=== PATIENT | female | born 1970 | race Caucasian/White ===

== ENCOUNTER 2020-06-07 17:57 | Emergency (ER) | payer OTHER, SELFPAY ==
--- NOTE | ~2020-06-07 | CT_ITS ---
EXAMINATION: CT abdomen pelvis wo con DATE: 06/07/2020 19:00 INDICATION: Bilateral flank pain. Hematuria. TECHNIQUE: Computed tomography (CT) of the abdomen and pelvis was performed without intravenous contr ast. Automated exposure control and iterative reconstruction technique were employed. The dose-length product was 207.97 mGy-cm. COMPARISON: CT abdomen and pelvis 03/30/2015 FINDINGS: The visualized portions of the lung bases demonstrate minimal atelectasis. No pleural effus ion. The heart size is normal. No pericardial effusion. The liver, spleen, gallbladder, pancreas, and adrenal glands are normal. There is a 4 mm stone in right kidney. There is a 9 mm stone in right scotty al pelvis. There is a 3 mm stone in left kidney. No hydronephrosis. There is a diverticulum of the si gmoid colon without evidence of diverticulitis. The appendix is normal. There are no dilated loops of bowel. There are no pathologically enlarged lymph nodes. There is no free intraperitoneal fluid. The re is mild thoracolumbar spondylosis. IMPRESSION: 1. Bilateral nonobstructing kidney stones. Reviewed, dictated and finalized at location A. OVISUAL PRODUCTION SPECIALIST
--- NOTE | ~2020-06-07 | XR_ITS ---
EXAMINATION: XR abdomen/kub 1V DATE: 06/07/2020 19:07 INDICATION: Hematuria. Back pain. TECHNIQUE: A supine view of the abdomen on 2 radiographs was obtained. COMPARISON: CT abdomen and pelvis 06/07/2020 FINDINGS: There are no dilated loops of bowel. There is a phlebolith in left pelvis. There is a 9 mm stone in right renal pelvis. There is a 3 mm stone in left kidney. IMPRESSION: 1. Bilateral kidney stones. Reviewed, dictated and finalized at location A. CLEANER IMPRESSION: 1. Bilateral kidney stones.
[2020-06-07 17:59] VITALS: BP 153/95; PULSE 109; RESP 18; TEMP 36.4; O2SAT 100
--- NOTE | 2020-06-07 18:25 | PC.NURSE ---
patient brought back to ED room H3 with c/o lower back pain. see notes. patient has hx of previous episodes of kidney stones. pain has been intermittent over the last few weeks. denies known fever. denies N/V/D. alert. oriented. missed scheduled KUB last May with her machine set up. assessments documented. SL inserted. labs drawn. urine specimen collected. bedside urine preg done.
--- NOTE | 2020-06-07 18:36 | PC.NURSE ---
provider in room.
[2020-06-07 18:45] LABS: Add Urine Microscopic? YES; Appearance Urine Cloudy (Clear); Bacteria Urine 2+ /hpf; Bilirubin Urine Negative (Negative); Blood Urine 3+ (Negative); Color Urine Red (Yellow); Glucose Urine UA Negative (Negative); Ketones Urine Negative (Negative); Leukocyte Esterase Ur Negative LEU/UL (Negative); Mucus Urine Rare /lpf; Nitrate Urine Negative (Negative); Protein Urine 2+ mg/dL (Negative); RBC Urine >75 /hpf (0-2); Squamous Epithelial Cell Urine Many /hpf (Few); Urobilinogen Urine Negative mg/dL (<2.0); WBC Urine 21-30 /hpf
[2020-06-07] MEDS: SODIUM CHLORIDE 0.9% IV 1,000 ML 999 ML IV CONT (18:49)
[2020-06-07] MEDS: ONDANSETRON INJ 4 MG/2 ML VIAL IV PUSH (18:49)
[2020-06-07 18:50] LABS: Basophils Absolute Auto 0.1 K/mm3 (0.0-0.1); Basophils Percent Auto 0.6 % (0.2-1.2); Eosinophils Absolute Auto 0.1 K/mm3 (0-0.3); Eosinophils Percent Auto 1.1 % (0-4.4); Hematocrit 42.1 % (37.0-47.0); Hemoglobin 14.6 g/dL (12.0-15.0); Immature Granulocyte Absolute 0.03 K/mm3 (0.00-0.031); Immature Granulocyte Percent A 0.3 % (0-0.5); Lymphocytes Absolute Auto 2.08 K/mm3 (0.9-3.2); Lymphocytes Percent Auto 19.2 % (18.3-44.2); Mean Corpuscular HGB Conc 34.7 g/dl (32-36); Mean Corpuscular Hemoglobin 28.9 pg (26-34); Mean Corpuscular Volume 83.2 fl (80-100); Mean Platelet Volume 10.7 fl (7.4-10.4); Monocytes Absolute Auto 0.5 K/mm3 (0.1-0.6); Monocytes Percent Auto 4.4 % (2.6-8.5); Neutrophils Absolute Auto 8.1 K/mm3 (1.3-6.7); Neutrophils Percent Auto 74.4 % (45.5-73.1); Platelet Count Result 352 k/mm3 (150-375); Red Blood Count 5.06 M/mm3 (4.2-5.4); Red Cell Distribution Width 12.2 % (11.5-14.5); White Blood Count 10.8 K/mm3 (4.5-10.0)
[2020-06-07 19:02] LABS: Anion Gap 11 mmol/L (8-16); Blood Urea Nitrogen 19 mg/dL (7-17); Calcium 9.2 mg/dL (8.4-10.2); Carbon Dioxide 28 mmol/L (22-30); Chloride 101 mmol/L (98-107); Estimated CRCL calculation 69 ml/min; Estimated Glomerular Filt Rate > 60; Glucose 131 mg/dL (65-105); Potassium 3.9 mmol/L (3.4-5.0); Sodium 140 mmol/L (137-145)
--- NOTE | 2020-06-07 20:04 | ED.ABDPAIN ---
HPI - Abdominal Pain General Chief Complaint: Abdominal Pain Stated Complaint: kidney stone, lower back pain Time Seen by Provider: 06/07/20 18:09 Source: patient, family and old records reviewed Mode of arrival: ambulatory Limitations: no limitations History of Present Illness HPI narrative: Patient is a 49-year-old female who presents to emergency department for evaluation of left-sided back pain and blood in the urine for the last 3 days presents with concern for possible kidney stone followed by urology at [facility]. Patient denies fever chills URI symptoms or vomiting. Patient does note some nausea. Patient has taken dbvv-[id number]-ykvomru medications with some improvement. Patient presents in no distress does not appear Related Data Home Medications Medication Instructions Recorded Confirmed alprazolam 0.25 mg tablet 0.25 mg PO TID PRN 04/18/19 12/25/19 ascorbic acid (vitamin C) 250 mg 250 mg PO DAILY 04/18/19 12/25/19 tablet carvedilol 3.125 mg tablet 3.125 mg PO Q12H 04/18/19 12/25/19 multivitamin,qw-yzli-xpyctzbb 1 tablet PO DAILY 04/18/19 12/25/19 cetirizine 10 mg tablet 10 mg PO DAILY PRN 12/25/19 12/25/19 Allergies Allergy/AdvReac Type Severity Reaction Status Date / Time Penicillins Allergy Unknown Verified 09/20/18 16:10 Review of Systems Review of Systems: All systems reviewed & are unremarkable except as noted in HPI and below PMFSH Past Medical History Medical History (Updated 06/07/20 @ 20:09 by Rg Flores PA-C) Chronic depression Essential (primary) hypertension Exposure to COVID-19 virus Generalized anxiety disorder with panic attacks Urolithiasis Family History Family History (Updated 09/20/18 @ 16:15 by DOCTOR UNKNOWN) Grandparent Diabetes mellitus Hypertension, Onset Age: 92 Family history of malignant neoplasm, Onset Age: 50 Mother Family history of hypercholesterolemia Hypertension Patient's mother is in good health Father Hypertension Patient's father is in good health Social History Social History Smoking status: Never smoker Alcohol intake: never Exam Narrative: Exam Narrative: GENERAL: Well-appearing, well-nourished, and in no acute distress. HEAD: Normocephalic, atraumatic. EYES: PERRLA and EOMI. ENT: Nares clear, no rhinorrhea or epistaxis. Mucous membranes moist. CHEST: Clear to auscultation. No respiratory distress. No wheezes rales or rhonchi HEART: Regular rate and rhythm. No murmur heard. Normal peripheral pulses. ABDOMEN: Soft, nontender, nondistended SKIN: Warm, dry, no rash. NEURO: No focal deficits. Alert and oriented x3. PSYCH: Normal mood and affect. Course Course Emergency Course: Patient evaluated emergency department will be treated for urinary tract infection given fluids and antibiotics in the emergency department afebrile appearing no distress ABCs and vital signs intact and stable will follow with urology given reasons to return felt appropriate for outpatient reevaluation Vital Signs Vital signs: Vital Signs Temperature 97.6 F 06/07/20 17:59 Pulse Rate 109 H 06/07/20 17:59 Respiratory Rate 18 06/07/20 17:59 Blood Pressure 153/95 H 06/07/20 17:59 Pulse Oximetry 100 06/07/20 17:59 Temperature 97.6 F 06/07/20 17:59 Pulse Rate 109 H 06/07/20 17:59 Respiratory Rate 18 06/07/20 17:59 Blood Pressure 153/95 H 06/07/20 17:59 Pulse Oximetry 100 06/07/20 17:59 MDM - Abdominal Pain MDM Narrative Medical decision making narrative: Patient treated in the emergency department felt appropriate for outpatient reevaluation afebrile nontoxic-appearing no distress Differential Diagnosis Differential diagnosis: Likely abdominal pain Lab Data Result diagrams: 06/07/20 18:45 06/07/20 18:45 Labs: Lab Results 06/07/20 06/07/20 06/07/20 Range/Units 18:32 18:45 18:45 WBC 10.8 H (4.5-10.0) K/mm3 R
== END 2020-06-07 20:22 | disposition home or self-care (01) ==
PROVIDERS: Emergency Medicine; Emergency Medicine Emergency Medical Services; Emergency Provider Emergency Medicine; PCP Family Medicine
DX: N39.0 Urinary tract infection, site not specified (principal); F32.9 Major depressive disorder, single episode, unspecified; I10 Essential (primary) hypertension; F41.1 Generalized anxiety disorder; N20.0 Calculus of kidney
CPT/HCPCS: 36415; 74018; 74176; 80048; 81001; 81025; 85025; 87086; 87088; 96361; 96365; 96375; 99284; J0696; J2405; J7030

== ENCOUNTER 2020-06-16 14:26 | Outpatient (CLI) | payer OTHER, SELFPAY ==
[2020-06-16 14:52] LABS: Prothrombin Time 13.3 Seconds (11.1-14.7)
[2020-06-16 14:53] LABS: Partial Thromboplastin Time 27.7 SECONDS (22.3-36.8)
== END 2020-06-16 14:27 | disposition home or self-care (01) ==
PROVIDERS: PCP Family Medicine; Visit Provider Urology
DX: N20.1 Calculus of ureter (principal); Z01.818 Encounter for other preprocedural examination
CPT/HCPCS: 36415; 85610; 85730

== ENCOUNTER 2020-06-17 01:42 | Outpatient (CLI) | payer OTHER, SELFPAY ==
[2020-06-17 18:38] LABS: SARS-CoV-2 RNA PCR Negative
== END 2020-06-17 01:43 | disposition home or self-care (01) ==
LOC: ANHCOVIDDT 01:43
PROVIDERS: PCP Family Medicine; Visit Provider Urology
DX: Z01.812 Encounter for preprocedural laboratory examination (principal); Z20.822 Contact with and (suspected) exposure to COVID-19
CPT/HCPCS: C9803; U0003; U0005

== ENCOUNTER 2020-06-17 22:20 | Emergency (ER) | payer OTHER, SELFPAY ==
--- NOTE | ~2020-06-17 | CT_ITS ---
EXAMINATION: CT abdomen pelvis wo con EXAM DATE: 06/18/2020 01:17 INDICATION: Kidney stone. TECHNIQUE: Spiral CT of the abdomen and pelvis was performed without contrast. Axial, coronal and sag ittal images were reviewed. The dose-length product (DLP) for this examination was 541.47 mGy-cm. T he exposure was tailored according to patient size (auto mA exposure control), and iterative reconstr uction (ASIR) was used as additional dose reduction technique. Comparison is made to prior examinatio n from 06/07/2020. FINDINGS: Again there is a nonobstructing 9 mm stone in the right renal . Several additional punctate left calyceal stones. No caliectasis. The uterus is unremarkable. The bladder is unremarkable. T he liver, spleen, adrenal glands and pancreas are unremarkable. Gallbladder is unremarkable. No silvano iary obstruction. There is no retroperitoneal or pelvic lymphadenopathy. Small umbilical fat-conta ining hernia. The appendix is normal. The stomach and small bowel are unremarkable. There is expected amount of c olonic stool. No free intraperitoneal gas. The heart is normal in size. There are no pericardial or pleural effusions. The lung bases are unremarkable. The bones are unremarkable. IMPRESSION: 1. Right renal pelvis nonobstructing 9 mm stone unchanged. Punctate left nephrolithiasis. Reviewed, dictated and finalized at location A. E MAKER IMPRESSION: 1. Right renal pelvis nonobstructing 9 mm stone unchanged. Punctate left nephr olithiasis.
[2020-06-17 22:29] VITALS: BP 151/58; PULSE 103; RESP 18; TEMP 36.5; O2SAT 100
--- NOTE | 2020-06-17 23:32 | ED.FEMALEGU ---
HPI - Female Genitourinary General Chief complaint: Urogenital-Female Stated complaint: abd pain, known kidney stone, fever Time Seen by Provider: 06/17/20 23:22 Source: patient Mode of arrival: ambulatory Limitations: no limitations History of Present Illness HPI Narrative: Patient is a 49-year-old female who presents complaining of lower abdominal pain, nausea, and fever starting this p.m. patient has a history of kidney stones and is scheduled for lithotripsy on Tuesday. Patient was also treated with IV and p.o. antibiotics for UTI diagnosed 06/07/2020. Patient reports that she just does not feel right . She denies all other complaints at this time. MD elicited complaint: UTI Related Data Home Medications Medication Instructions Recorded Confirmed alprazolam 0.25 mg tablet 0.25 mg PO TID PRN 04/18/19 06/12/20 ascorbic acid (vitamin C) 250 mg 250 mg PO DAILY 04/18/19 06/12/20 tablet carvedilol 3.125 mg tablet 3.125 mg PO Q12H 04/18/19 06/12/20 multivitamin,cx-wfke-fsqglujr 1 tablet PO DAILY 04/18/19 06/12/20 cetirizine 10 mg tablet 10 mg PO DAILY PRN 12/25/19 06/12/20 cholecalciferol (vitamin D3) 50 mcg PO DAILY 06/12/20 06/12/20 [Vitamin D3] Allergies Allergy/AdvReac Type Severity Reaction Status Date / Time Penicillins Allergy Unknown Rash Verified 06/17/20 22:34 Review of Systems Review of Systems: Narrative: CONSTITUTIONAL: Reports fever, denies chills, or sweats. EYES: Denies visual changes, redness, or discharge. ENT: Denies rhinorrhea, congestion, sore throat, or otalgia. CARDIOVASCULAR: Denies chest pain, palpitations, or edema. RESPIRATORY: Denies cough or dyspnea. GASTROINTESTINAL: Reports nausea, vomiting, or diarrhea. GENITOURINARY: Denies dysuria or hematuria, reports lower abdominal pain. SKIN: Denies rash or itching. MUSCULOSKELETAL: Denies back pain, joint pain, or myalgia. NEUROLOGIC: Denies headache, numbness, dizziness, or weakness. PSYCHIATRIC: Denies anxiety or depression. [facility] Past Medical History Medical History Chronic depression Essential (primary) hypertension Exposure to COVID-19 virus Generalized anxiety disorder with panic attacks Urolithiasis Family History Family History Grandparent Diabetes mellitus Hypertension, Onset Age: 92 Family history of malignant neoplasm, Onset Age: 50 Mother Family history of hypercholesterolemia Hypertension Patient's mother is in good health Father Hypertension Patient's father is in good health Social History Social History Smoking status: Never smoker Alcohol intake: never Substance use: never Gender identity (if verbalized by the patient): Female Spiritual care concerns: No Exam Narrative: Exam Narrative: GENERAL: Well-appearing, well-nourished, and in no acute distress. HEAD: Normocephalic, atraumatic. EYES: No redness or drainage. ENT: Mucous membranes pink and moist. CHEST: No respiratory distress. HEART: Regular rate and rhythm. EXTREMITIES: Normal range of motion. SKIN: Warm, dry, no rash. NEURO: No focal deficits. Alert and oriented x3. Gait steady. PSYCH: Normal affect. No signs of depression or anxiety. Course Vital Signs Vital signs: Vital Signs Temperature 36.5 C 06/17/20 22:29 Pulse Rate 103 H 06/17/20 22:29 Respiratory Rate 18 06/17/20 22:29 Blood Pressure 151/58 H 06/17/20 22:29 Pulse Oximetry 100 06/17/20 22:29 Temperature 37.2 C 06/18/20 02:11 Pulse Rate 88 06/18/20 02:11 Respiratory Rate 16 06/18/20 02:11 Blood Pressure 113/76 06/18/20 02:11 Pulse Oximetry 98 06/18/20 02:11 MDM - Female Genitourinary MDM Narrative Medical decision making narrative: Patient CT shows no changes or obstructing stones. Patient denies pain at this time. Spoke with Dr. Bahena who agre
[2020-06-18] MEDS: SODIUM CHLORIDE 0.9% IV 1,000 ML 999 ML IV CONT (00:01)
[2020-06-18] MEDS: ONDANSETRON INJ 4 MG/2 ML VIAL IV PUSH (00:01)
[2020-06-18 00:11] LABS: Basophils Absolute Auto 0.1 K/mm3 (0.0-0.1); Basophils Percent Auto 0.5 % (0.2-1.2); Eosinophils Absolute Auto 0.2 K/mm3 (0-0.3); Eosinophils Percent Auto 1.7 % (0-4.4); Hematocrit 38.3 % (37.0-47.0); Immature Granulocyte Absolute 0.02 K/mm3 (0.00-0.031); Immature Granulocyte Percent A 0.2 % (0-0.5); Lymphocytes Absolute Auto 2.83 K/mm3 (0.9-3.2); Lymphocytes Percent Auto 27.7 % (18.3-44.2); Mean Corpuscular HGB Conc 33.9 g/dl (32-36); Mean Corpuscular Hemoglobin 28.7 pg (26-34); Mean Corpuscular Volume 84.5 fl (80-100); Monocytes Absolute Auto 0.7 K/mm3 (0.1-0.6); Monocytes Percent Auto 6.9 % (2.6-8.5); Neutrophils Absolute Auto 6.4 K/mm3 (1.3-6.7); Platelet Count Result 270 k/mm3 (150-375); Red Blood Count 4.53 M/mm3 (4.2-5.4); Red Cell Distribution Width 12.3 % (11.5-14.5); White Blood Count 10.2 K/mm3 (4.5-10.0)
[2020-06-18 00:16] LABS: Add Urine Microscopic? YES; Appearance Urine Cloudy (Clear); Bacteria Urine 4+ /hpf; Bilirubin Urine Negative (Negative); Blood Urine 3+ (Negative); Color Urine Straw (Yellow); Glucose Urine UA Negative (Negative); Ketones Urine Negative (Negative); Leukocyte Esterase Ur Negative LEU/UL (Negative); Mucus Urine Rare /lpf; Nitrate Urine Negative (Negative); Protein Urine Negative (Negative); RBC Urine >75 /hpf (0-2); Specific Grav Ur 1.012 (1.001-1.035); Squamous Epithelial Cell Urine Many /hpf (Few); Urobilinogen Urine Negative mg/dL (<2.0)
[2020-06-18 00:23] LABS: Anion Gap 9 mmol/L (8-16); Blood Urea Nitrogen 14 mg/dL (7-17); Carbon Dioxide 23 mmol/L (22-30); Chloride 106 mmol/L (98-107); Estimated CRCL calculation 70 ml/min; Estimated Glomerular Filt Rate > 60; Glucose 119 mg/dL (65-105); Sodium 138 mmol/L (137-145)
[2020-06-18 01:57] LABS: Add Urine Microscopic? YES; Appearance Urine Clear (Clear); Bacteria Urine 4+ /hpf; Bilirubin Urine Negative (Negative); Blood Urine 3+ (Negative); Color Urine Straw (Yellow); Glucose Urine UA Negative (Negative); Ketones Urine Negative (Negative); Leukocyte Esterase Ur Negative LEU/UL (Negative); Mucus Urine Rare /lpf; Nitrate Urine Negative (Negative); Protein Urine Negative (Negative); RBC Urine >75 /hpf (0-2); Specific Grav Ur 1.012 (1.001-1.035); Squamous Epithelial Cell Urine Rare /hpf (Few); Urobilinogen Urine Negative mg/dL (<2.0)
[2020-06-18 02:11] VITALS: BP 113/76; PULSE 88; RESP 16; TEMP 37.2; O2SAT 98
== END 2020-06-18 02:12 | disposition home or self-care (01) ==
PROVIDERS: Emergency Provider Nurse Practitioner; PCP Family Medicine
DX: N20.0 Calculus of kidney (principal); I10 Essential (primary) hypertension; F32.9 Major depressive disorder, single episode, unspecified; F41.1 Generalized anxiety disorder
CPT/HCPCS: 36415; 74176; 80048; 81001; 85025; 87086; 96361; 96374; 96375; 99284; J0131; J2405; J7030

== ENCOUNTER 2020-06-20 02:21 | Day surgery (SDC) | payer OTHER, SELFPAY ==
[2020-06-12 18:39] VITALS: BMI 30.8
[2020-06-20] VITALS (7 sets, daily range): BP systolic 106–130; BP diastolic 58–67; PULSE 82–98; RESP 13–16; TEMP 36.6–37.4; O2SAT 100; BMI 27.8
--- NOTE | ~2020-06-20 | XR_ITS ---
EXAMINATION: XR abdomen/kub 1V EXAM DATE: 06/20/2020 06:48 INDICATION: For right-sided lithotripsy. TECHNIQUE: Frontal projection of the upper abdomen, frontal projection lower abdomen/pelvis for inter pretation. Comparison is made to prior examination from 06/07/2020. FINDINGS: Approximately 6 mm stone projecting over medial aspect of right kidney identified, indicat ed. No other calcifications. There is no organomegaly. There are no osseous abnormalities identified. IMPRESSION: Right nephrolithiasis. Reviewed, dictated and finalized at location A. GER BABY IMPRESSION: Right nephrolithiasis.
--- NOTE | 2020-06-20 07:24 | WPDHPUPDATE1 ---
History and Physical Update Update Date/Time: 06/20/20 07:24 History and Physical has been reviewed, including an updated exam of the patient. There are NO changes in the patient's condition. Risks, benefits, and alternatives have been discussed and questions answered. Patient agrees to proceed with procedure.
[2020-06-20] MEDS: LACTATED RINGERS 1,000 ML 30 ML IV CONT ×2 (07:41→09:31)
--- NOTE | 2020-06-20 08:06 | WPDANESEPPF ---
Anes - Initial Pre Proc Eval Procedure: Operation Date: 06/20/20 08:30 Proposed Procedures p Right Extracorporeal Shock Wave Lithotripsy - Josse Rizvi MD s Flexible Cystoscopy - Josse Rizvi MD Date/Time: 06/20/20 08:06 Surgeon: Josse Rizvi MD Pre Op Diagnosis: right UPJ Stone Patient Data Age: 49 Gender: F Height: 5 ft 3 in Weight: 71.15 kg Last Vital Signs Temp 97.8 F 06/20/20 07:38 Pulse 92 06/20/20 07:38 Resp 16 06/20/20 07:38 BP 129/67 06/20/20 07:38 Pulse Ox 100 06/20/20 07:38 Allergies Allergy/AdvReac Type Severity Reaction Status Date / Time Penicillins Allergy Unknown Rash Verified 06/17/20 22:34 Home Medications Medication Instructions Recorded Confirmed Type alprazolam 0.25 mg tablet 0.25 mg PO TID PRN 04/18/19 06/20/20 History ascorbic acid (vitamin C) 250 mg 250 mg PO DAILY 04/18/19 06/20/20 History tablet carvedilol 3.125 mg tablet 3.125 mg PO Q12H 04/18/19 06/20/20 History multivitamin,yp-czwe-okldywql 1 tablet PO DAILY 04/18/19 06/20/20 History cetirizine 10 mg tablet 10 mg PO DAILY PRN 12/25/19 06/20/20 History bupropion HCl 150 mg 24 hr tablet, 150 mg PO QAM #30 tablet 03/06/20 06/20/20 Rx extended release atorvastatin 20 mg tablet 20 mg PO DAILY #90 tablet 03/24/20 06/20/20 Rx cephalexin [Keflex] 500 mg PO Q8H 10 Days #30 cap 06/07/20 06/20/20 Rx ondansetron 4 mg PO Q6H PRN #7 tablet 06/07/20 06/20/20 Rx phenazopyridine [Pyridium] 200 mg PO TID PRN #6 tablet 06/07/20 06/20/20 Rx cholecalciferol (vitamin D3) 50 mcg PO DAILY 06/12/20 06/20/20 History [Vitamin D3] sulfamethoxazole-trimethoprim 1 tablet PO Q12H 3 Days #6 tablet 06/18/20 06/20/20 Rx [Bactrim DS] Patient hx anesthesia problems: none Family hx anesthesia problems: none PMFSH Past Medical History Medical History (Updated 06/20/20 @ 08:06 by Ady Ernandez MD) Chronic depression Essential (primary) hypertension Exposure to COVID-19 virus Generalized anxiety disorder with panic attacks Hyperlipidemia Urolithiasis Family History Family History Grandparent Diabetes mellitus Hypertension, Onset Age: 92 Family history of malignant neoplasm, Onset Age: 50 Mother Family history of hypercholesterolemia Hypertension Patient's mother is in good health Father Hypertension Patient's father is in good health Social History Social History Smoking status: Never smoker Alcohol intake: never Substance use: never Living arrangements: with family Gender identity (if verbalized by the patient): Female Sexual Orientation (if Verbalized by the Patient): Straight or Heterosexual Spiritual care concerns: No Anes - Eval Final PreProcedure Day of Procedure 06/20/20 08:06 Patient weight: normal Heart: regular rate and rhythm Lungs: clear to auscultation Airway: Mallampati scale class II Neurological: alert and oriented Last oral intake: >/= 8 hours ASA classification: II Emergent: no Anesthetic plan: proceed Anesthesia type and monitoring: general LMA and standard monitoring Informed Consent: The patient's anesthetic plan and its attendant risks and benefits were discussed with the patient/family/POA. Questions were solicited and answers provided to the satisfaction of the patient/family/POA.
[2020-06-20] MEDS: ceFAZolin 2 GM/D5W 50 ML 2 GM/50 ML BAG IVPB (08:31)
[2020-06-20] MEDS: LIDOCAINE HCL 2% GEL UROJET 10 ML PKG MUCOUS MEM (08:45)
--- NOTE | 2020-06-20 09:17 | PM.PROC ---
Procedure Note - Detailed Date of procedure: 06/20/20 Pre-op diagnosis: right UPJ Stone Post-op diagnosis: same Procedure performed: ESWL right UPJ calculus 9 mm Description of procedure: Patient is taken the operative suite and correctly identified. Once anesthesia was obtained the stone was localized in both planes. Two thousand five hundred shocks were given to the stone. Appears to be a fairly hard stone. Patient is taken recovery room stable condition. Given the standard post litho instructions will follow up in about 10 days with KUB. She develops any problems he will call us so we can deal with appropriately. Anesthesia: GLMA Surgeon: Josse Rizvi MD Drains: No Packing: No Pathology: none sent Complications: No immediate complications Condition: stable Disposition: PACU
[2020-06-20] MEDS: oxyCODONE HCL (*CRX) 5 MG TAB IR PO (10:28)
== END 2020-06-20 11:01 | disposition home or self-care (01) ==
PROVIDERS: PCP Family Medicine; Visit Provider Urology
PROC: (CPT 50590; principal; 2020-06-20 08:30)
PROC: 0TJB8ZZ Inspection of Bladder, Via Natural or Artificial Opening Endoscopic (ICD-10-PCS; CPT 52000; 2020-06-20 08:30)
DX: N20.1 Calculus of ureter (principal); I10 Essential (primary) hypertension; E78.5 Hyperlipidemia, unspecified; F32.9 Major depressive disorder, single episode, unspecified; F41.1 Generalized anxiety disorder
CPT/HCPCS: 50590; 36415; 74018; 85610; 85730; A9270; C9803; J0690; J1100; J2250; J2405; J2704; J3010; J7030; J7120; U0003; U0005

== ENCOUNTER 2020-06-21 16:48 | Emergency (ER) | payer OTHER, SELFPAY ==
--- NOTE | ~2020-06-21 | CT_ITS ---
EXAMINATION: CT abdomen pelvis wo con EXAM DATE: 06/21/2020 18:10 INDICATION: Flank pain. Right-sided lithotripsy. TECHNIQUE: Spiral CT of the abdomen and pelvis was performed without contrast. Axial, coronal and sag ittal images were reviewed. The dose-length product (DLP) for this examination was 225.22 mGy-cm. T he exposure was tailored according to patient size (auto mA exposure control), and iterative reconstr uction (ASIR) was used as additional dose reduction technique. Comparison is made to prior examinatio n from 06/18/2020. FINDINGS: There are at least 2 contiguous stone fragments in the distal aspect of the right ureter. D ifficult to determine exact size, but probably 4 and 5 mm. There is no right-sided hydronephrosis. Th ere is additional 3 mm right inferior calyceal stone. There is punctate left mid calyceal stone. The uterus is anteverted and morphologically normal. The bladder is unremarkable. The liver, spleen, adrenal glands and pancreas are unremarkable. Gallbladder is unremarkable. No biliary obstruction. There is no retroperitoneal or pelvic lymphadenopathy. Small umbilical fat-containing hernia. The appendix is normal. The stomach and small bowel are unremarkable. There is expected amount of c olonic stool. No free intraperitoneal gas. The heart is normal in size. There are no pericardial or pleural effusions. The lung bases are unremarkable. The bones are unremarkable. IMPRESSION: 1. Right distal ureteral stone fragments measuring approximately 4 and 5 mm. No hydronephrosis. Reviewed, dictated and finalized at location A. K CLEANER IMPRESSION: 1. Right distal ureteral stone fragments measuring approximately 4 and 5 mm. N o hydronephrosis.
[2020-06-21 16:57] VITALS: BP 127/95; PULSE 93; RESP 16; TEMP 36.9; O2SAT 99
[2020-06-21 17:17] LABS: Basophils Absolute Auto 0.1 K/mm3 (0.0-0.1); Basophils Percent Auto 0.4 % (0.2-1.2); Eosinophils Absolute Auto 0.1 K/mm3 (0-0.3); Eosinophils Percent Auto 0.5 % (0-4.4); Hematocrit 38.2 % (37.0-47.0); Hemoglobin 12.9 g/dL (12.0-15.0); Immature Granulocyte Absolute 0.02 K/mm3 (0.00-0.031); Immature Granulocyte Percent A 0.2 % (0-0.5); Lymphocytes Absolute Auto 3.37 K/mm3 (0.9-3.2); Lymphocytes Percent Auto 27.5 % (18.3-44.2); Mean Corpuscular HGB Conc 33.8 g/dl (32-36); Mean Corpuscular Hemoglobin 28.1 pg (26-34); Mean Corpuscular Volume 83.2 fl (80-100); Monocytes Absolute Auto 0.9 K/mm3 (0.1-0.6); Monocytes Percent Auto 7.2 % (2.6-8.5); Neutrophils Absolute Auto 7.9 K/mm3 (1.3-6.7); Neutrophils Percent Auto 64.2 % (45.5-73.1); Platelet Count Result 296 k/mm3 (150-375); Red Blood Count 4.59 M/mm3 (4.2-5.4); Red Cell Distribution Width 12.6 % (11.5-14.5); White Blood Count 12.3 K/mm3 (4.5-10.0)
[2020-06-21 17:24] LABS: Add Urine Microscopic? YES; Appearance Urine Clear (Clear); Bacteria Urine 4+ /hpf; Bilirubin Urine Negative (Negative); Blood Urine 3+ (Negative); Color Urine Red (Yellow); Glucose Urine UA Negative (Negative); Ketones Urine Negative (Negative); Leukocyte Esterase Ur Negative LEU/UL (Negative); Nitrate Urine Negative (Negative); Protein Urine 2+ mg/dL (Negative); RBC Urine >75 /hpf (0-2); Specific Grav Ur 1.009 (1.001-1.035); Squamous Epithelial Cell Urine Occasional /hpf (Few); Urobilinogen Urine Negative mg/dL (<2.0); WBC Urine 0-3 /hpf
[2020-06-21 17:30] LABS: Alanine Aminotransferase 21 U/L (4-35); Albumin Level 4.4 g/dL (3.5-5.1); Alkaline Phosphatase 91 U/L (38-126); Anion Gap 5 mmol/L (8-16); Aspartate Amino Transferase 24 U/L (14-36); Bilirubin,Total 0.3 mg/dL (0.2-1.3); Blood Urea Nitrogen 14 mg/dL (7-17); Calcium 8.9 mg/dL (8.4-10.2); Carbon Dioxide 26 mmol/L (22-30); Chloride 107 mmol/L (98-107); Estimated CRCL calculation 56 ml/min; Estimated Glomerular Filt Rate 59; Glucose 118 mg/dL (65-105); Lipase 75 U/L (23-300); Potassium 3.8 mmol/L (3.4-5.0); Sodium 138 mmol/L (137-145)
[2020-06-21] MEDS: MORPHINE SULFATE (*CRX) 4 MG/ML INJ IV PUSH ×2 (17:42→19:14)
[2020-06-21] MEDS: ONDANSETRON INJ 4 MG/2 ML VIAL IV PUSH (17:43)
[2020-06-21] MEDS: SODIUM CHLORIDE 0.9% IV 1,000 ML 999 ML IV CONT (17:43)
--- NOTE | 2020-06-21 17:55 | ED.GENADULT ---
HPI - General Adult General Chief complaint: Urogenital-Female Stated complaint: DIFFICULTY URINATING Time Seen by Provider: 06/21/20 17:01 Source: patient Mode of arrival: ambulatory Limitations: no limitations History of Present Illness HPI narrative: Patient is a 49-year-old female who presents to emergency department for evaluation of right flank pain had lithotripsy yesterday has been taking tramadol with no improvement patient notes some nausea denies fever chills is currently also on an antibiotic managed by Dr. Rizvi. Related Data Home Medications Medication Instructions Recorded Confirmed alprazolam 0.25 mg tablet 0.25 mg PO TID PRN 04/18/19 06/20/20 ascorbic acid (vitamin C) 250 mg 250 mg PO DAILY 04/18/19 06/20/20 tablet carvedilol 3.125 mg tablet 3.125 mg PO Q12H 04/18/19 06/20/20 multivitamin,vm-psbw-veknsysp 1 tablet PO DAILY 04/18/19 06/20/20 cetirizine 10 mg tablet 10 mg PO DAILY PRN 12/25/19 06/20/20 cholecalciferol (vitamin D3) 50 mcg PO DAILY 06/12/20 06/20/20 [Vitamin D3] Allergies Allergy/AdvReac Type Severity Reaction Status Date / Time Penicillins Allergy Unknown Rash Verified 06/21/20 17:07 Review of Systems Review of Systems: All systems reviewed & are unremarkable except as noted in HPI and below PMFSH Past Medical History Medical History Chronic depression Essential (primary) hypertension Exposure to COVID-19 virus Generalized anxiety disorder with panic attacks Hyperlipidemia Urolithiasis Family History Family History Grandparent Diabetes mellitus Hypertension, Onset Age: 92 Family history of malignant neoplasm, Onset Age: 50 Mother Family history of hypercholesterolemia Hypertension Patient's mother is in good health Father Hypertension Patient's father is in good health Social History Social History Smoking status: Never smoker Alcohol intake: never Substance use: never Gender identity (if verbalized by the patient): Female Spiritual care concerns: No Exam Narrative: Exam Narrative: GENERAL: Well-appearing, well-nourished, and in no acute distress. HEAD: Normocephalic, atraumatic. EYES: PERRLA and EOMI. ENT: Nares clear, no rhinorrhea or epistaxis. Mucous membranes moist. CHEST: Clear to auscultation. No respiratory distress. No wheezes rales or rhonchi HEART: Regular rate and rhythm. No murmur heard. Normal peripheral pulses. ABDOMEN: Soft, nontender, nondistended EXTREMITIES: Normal range of motion. No edema. SKIN: Warm, dry, no rash. NEURO: No focal deficits. Alert and oriented x3. Cranial nerves II through XII grossly intact PSYCH: Normal mood and affect. Course Course Emergency Course: Patient presented with pain status post lithotripsy found to have distal 5 and 4 mm fragment stones in the distal ureter patient was given pain medication and fluids patient was given the option of staying in the hospital or attempting outpatient treatment with different medications patient would like to try to go home and agrees to return if symptoms worsen patient at this time in the emergency department in no distress does not appear uncomfortable. Consultations Consultation #1: Discussed case with on-call urology who notes the patient can attempt outpatient therapy or be brought in pending the patient's preference Date: 06/21/20 Time: 19:07 Vital Signs Vital signs: Vital Signs Temperature 98.4 F 06/21/20 16:57 Pulse Rate 93 06/21/20 16:57 Respiratory Rate 16 06/21/20 16:57 Blood Pressure 127/95 H 06/21/20 16:57 Pulse Oximetry 99 06/21/20 16:57 Temperature 98.4 F 06/21/20 16:57 Pulse Rate 88 06/21/20 18:18 Respiratory Rate 15 06/21/20 18:18 Blood Pressure 132/74 06/21/20 18:18 Pulse Oximetry 98 06/21/20 18:18 Medical Decisio
[2020-06-21 18:18] VITALS: BP 132/74; PULSE 88; RESP 15; O2SAT 98
[2020-06-21 18:50] VITALS: BP 125/77; PULSE 87; RESP 15; O2SAT 100
== END 2020-06-21 19:30 | disposition home or self-care (01) ==
PROVIDERS: Emergency Provider Family Medicine; PCP Family Medicine
DX: N21.1 Calculus in urethra (principal); I10 Essential (primary) hypertension; E78.5 Hyperlipidemia, unspecified; F32.9 Major depressive disorder, single episode, unspecified; F41.1 Generalized anxiety disorder
CPT/HCPCS: 36415; 74176; 80053; 81001; 81025; 83690; 85025; 96361; 96374; 96375; 96376; 99284; J2270; J2405; J7030

== ENCOUNTER 2020-07-02 12:04 | Outpatient (CLI) | payer OTHER, SELFPAY ==
--- NOTE | ~2020-07-02 | XR_ITS ---
XR abdomen/kub 1V DATE: 07/02/2020 12:21 INDICATION: Right kidney stone TECHNIQUE: AP projection, 2 views COMPARISON: 06/20/2020 KUB 06/21/[address] abdomen pelvis FINDINGS: Approximately 1 x 5 mm faint calcified density overlies the distal right ureter, possibly a residual distal right ureteral calculus fragment. No other urinary tract calculi are suggested. The psoas shadows are intact. No visceromegaly is detected. There is no evidence of bowel obstruction . The included skeletal structures are unremarkable. IMPRESSION: Suggestion of an approximately 1 x 5 mm faint calcified distal right ureteral calculus Reviewed, dictated and finalized at Location A. Reviewed, dictated and finalized at location A. THESIOLOGIST/PHYSICIAN IMPRESSION: Suggestion of an approximately 1 x 5 mm faint calcified distal righ t ureteral calculus
== END 2020-07-02 12:05 | disposition home or self-care (01) ==
PROVIDERS: PCP Family Medicine; Visit Provider Urology
DX: N20.1 Calculus of ureter (principal)
CPT/HCPCS: 74018

== ENCOUNTER → 2021-06-01 01:28 | Outpatient (CLI) | payer OTHER, SELFPAY ==
[2021-06-01 13:20] LABS: Influenza Control Positive
[2021-06-01 21:23] LABS: SARS-CoV-2 RNA PCR Positive
== END ==
PROVIDERS: PCP Family Medicine; Visit Provider Nurse Practitioner Family
DX: R05.9 Cough, unspecified (principal); R53.83 Other fatigue; U07.1 COVID-19
CPT/HCPCS: 87804; C9803; U0003; U0005

== ENCOUNTER 2021-06-15 13:11 | Outpatient (CLI) | payer OTHER, SELFPAY ==
--- NOTE | ~2021-06-15 | XR_ITS ---
EXAMINATION: XR abdomen/kub 1V DATE: 06/15/2021 13:23 INDICATION: Calculus of kidney. TECHNIQUE: A supine view of the abdomen on 2 radiographs was obtained. COMPARISON: CT abdomen and pelvis 06/21/2020 FINDINGS: There are no dilated loops of bowel. There are phleboliths in left pelvis. There is a 4 mm stone in left kidney. IMPRESSION: 1. 4 mm stone in left kidney. Reviewed, dictated and finalized at location A. TAL SOLUTION ARCHITECT
== END 2021-06-15 13:12 | disposition home or self-care (01) ==
LOC: ANHIMG 13:13
PROVIDERS: PCP Family Medicine; Visit Provider Urology
DX: N20.0 Calculus of kidney (principal)
CPT/HCPCS: 74018

== ENCOUNTER 2021-10-13 15:21 | Outpatient (CLI) | payer OTHER, SELFPAY ==
--- NOTE | ~2021-10-13 | XR_ITS ---
XR abdomen/kub 1V 10/13/2021 15:37 Indication: Urinary calculus Procedure: KUB Comparison: 06/15/2021 Findings: There is a new calcification in the left pelvis suspicious for UPJ stone. Bowel gas pattern nonobstructive with moderate colonic fecal loading. No acute osseous abnormality. Lung bases are unr emarkable. Impression: 1: Probable left UVJ stone measuring approximately 4 mm. Reviewed, dictated and finalized at location A. Impression: 1: Probable left UVJ stone measuring approximately 4 mm.
== END 2021-10-13 15:22 | disposition home or self-care (01) ==
PROVIDERS: PCP Family Medicine; Visit Provider Family Medicine
DX: N20.9 Urinary calculus, unspecified (principal)
CPT/HCPCS: 74018

== ENCOUNTER 2022-12-02 12:43 | Outpatient (CLI) | payer OTHER, SELFPAY | END 2022-12-02 12:44 | disposition home or self-care (01) | LOC: ANHAUDIO 12:43 | PROVIDERS: PCP Family Medicine; Visit Provider Family Medicine | DX: H91.93 Unspecified hearing loss, bilateral (principal) | CPT/HCPCS: 92557; 92567 ==

== ENCOUNTER 2023-12-30 09:43 | Outpatient (CLI) | payer OTHER, BC, SELFPAY ==
--- NOTE | ~2023-12-30 | CT_ITS ---
EXAMINATION: CT abdomen wo/w con DATE: 12/30/2023 10:41 INDICATION: Disorder of adrenal gland. TECHNIQUE: Computed tomography (CT) of the abdomen was performed without and with 100 mL Omnipaque 35 0 intravenous contrast. Automated exposure control and iterative reconstruction technique were employ ed. The dose-length product was 543.56 mGy-cm. COMPARISON: CT abdomen and pelvis 06/21/2020 FINDINGS: The visualized portions of the lung bases are clear without pneumonia or pleural effusion. The heart size is normal. No pericardial effusion. The liver, gallbladder, spleen, pancreas, adrenal glands, and right kidney are normal. There is a 9 mm hemorrhagic cyst in left kidney. There is a 6 mm stone in left kidney. There are no dilated loops of bowel. The appendix is normal. There are no path ologically enlarged lymph nodes. There is no free intraperitoneal fluid. There is mild thoracic and l umbar spondylosis. IMPRESSION: 1. Normal adrenal glands. Reviewed, dictated and finalized at location A. IMPRESSION: 1. Normal adrenal glands.
== END 2023-12-30 09:44 | disposition home or self-care (01) ==
PROVIDERS: PCP Family Medicine; Visit Provider Internal Medicine Endocrinology, Diabetes & Metabolism
DX: E27.9 Disorder of adrenal gland, unspecified (principal)
CPT/HCPCS: 74170; Q9967